=== PATIENT | male | born 1950 | race African-American/Black ===

== ENCOUNTER 2018-07-28 09:19 | Emergency (ER) | payer MEDICAID, MEDICARE, OTHER ==
[~2018-07-28] VITALS: Ht 177.8 cm; Wt 98.0 kg
[~2018-07-28 09:19] MED LIST: IBUP-2030 PO; METF-414 PO
[2018-07-28 10:45] LABS: HEMOGLOBIN. 13.5 g/dL (14.0-18.0); MEAN CORPUSCULAR HEMOGLOBIN 34.4 pg (28.0-32.0); MEAN CORPUSCULAR VOLUME 101.7 fL (80.0-94.0); MEAN PLATELET VOLUME 8.5 fl (7.4-10.4); PLATELET 197 x1000/uL (130-400); RED BLOOD CELL COUNT 3.93 mill/uL (4.7-6.1); RED CELL DISTRIBUTION WIDTH 13.9 % (11.6-14.6)
[2018-07-28 10:47] LABS: CHLORIDE 105 mEq/L (98-107)
[2018-07-28 10:47] LABS: CLARITY URINE CLEAR (CLEAR); COLOR URINE YELLOW (YELLOW); KETONES URINE NEGATIVE (NEGATIVE); LEUKOCYTE ESTERASE URINE NEGATIVE (NEGATIVE); NITRITE URINE NEGATIVE (NEGATIVE); OCCULT BLOOD URINE NEGATIVE (NEGATIVE); PH URINE 5.5 (4.5-8.0); PROTEIN URINE NEGATIVE (NEGATIVE); SPECIFIC GRAVITY URINE 1.023 (1.005-1.030)
[2018-07-28 11:07] LABS: PLATELET ESTIMATE NORMAL
[2018-07-28 12:06] VITALS: BP 169/92
== END 2018-07-28 12:09 | disposition home or self-care (01) ==
LOC: ER 09:19
DX: J40 Bronchitis, not specified as acute or chronic (principal); I11.0 Hypertensive heart disease with heart failure; E11.9 Type 2 diabetes mellitus without complications; M19.90 Unspecified osteoarthritis, unspecified site; H40.9 Unspecified glaucoma; D64.9 Anemia, unspecified; Z79.84 Long term (current) use of oral hypoglycemic drugs
CPT/HCPCS: 36415; 71045; 83605; 83880; 84484; 93005; 99284

== ENCOUNTER 2022-03-20 09:11 | Emergency (ER) | payer OTHER, MEDICAID ==
[~2022-03-20] VITALS: Ht 177.8 cm; Wt 95.0 kg
[2022-03-20 10:48] LABS: BASOPHILS % 0.6 % (0.0-2.0); EOSINOPHILS % 0.6 % (0.0-5.0); HEMATOCRIT. 41.3 % (42.0-52.0); HEMOGLOBIN. 14.2 g/dL (14.0-18.0); LYMPHOCYTES % 28.5 % (20.0-50.0); MEAN CORPUSCULAR HEMOGLOBIN 35.1 pg (28.0-32.0); MEAN CORPUSCULAR VOLUME 102.3 fL (80.0-94.0); MEAN PLATELET VOLUME 8.6 fl (7.4-10.4); MONOCYTES % 7.8 % (2.0-8.0); NEUTROPHILS % 62.5 % (40.0-76.0); PLATELET 204 x1000/uL (130-400); RED BLOOD CELL COUNT 4.03 mill/uL (4.7-6.1); RED CELL DISTRIBUTION WIDTH 13.9 % (11.6-14.6)
[2022-03-20 10:52] LABS: PROTHROMBIN TIME 11.2 sec (9.6-11.0)
[2022-03-20 11:03] LABS: CHLORIDE 106 mEq/L (98-107)
[2022-03-20 17:01] LABS: CLARITY URINE CLEAR (CLEAR); COLOR URINE YELLOW (YELLOW); KETONES URINE NEGATIVE (NEGATIVE); LEUKOCYTE ESTERASE URINE NEGATIVE (NEGATIVE); NITRITE URINE NEGATIVE (NEGATIVE); OCCULT BLOOD URINE NEGATIVE (NEGATIVE); PH URINE 6.5 (4.5-8.0); PROTEIN URINE NEGATIVE (NEGATIVE); SPECIFIC GRAVITY URINE 1.017 (1.005-1.030)
[2022-03-20 17:35] VITALS: BP 139/81
== END 2022-03-20 17:39 | disposition home or self-care (01) ==
LOC: ER 09:35
DX: R41.3 Other amnesia (principal); E11.9 Type 2 diabetes mellitus without complications; I10 Essential (primary) hypertension
CPT/HCPCS: 36415; 71045; 80053; 81003; 84484; 85025; 99285